=== PATIENT | female | born 1945 | race Caucasian/White ===

== ENCOUNTER 2022-05-16 18:22 | Emergency (ER) | payer MEDICARE, BC ==
[~2022-05-16] VITALS: Ht 170.2 cm; Wt 88.6 kg
[2022-05-16] MEDS ORDERED: niCARDipine-NS 40mg/200ml IVPB 200 ML IV SCH (19:15)
[2022-05-16 19:48] LABS: BASOPHILS % (AUTO) 0.6 % (0-1); EOSINOPHILS # (AUTO) 0.1 X10'3 (0-0.9); EOSINOPHILS % (AUTO) 2.3 % (0-6); HEMATOCRIT 40.1 % (35.0-45.0); LYMPHOCYTES # (AUTO) 1.9 X10'3 (1.1-4.8); LYMPHOCYTES % (AUTO) 30.5 % (21-51); MEAN CORPUSCULAR HEMOGLOBIN 32.8 PG (27.0-31.0); MEAN CORPUSCULAR HGB CONC 34.9 g/dL (33.0-36.5); MEAN CORPUSCULAR VOLUME 93.9 FL (78-98); MEAN PLATELET VOLUME 8.2 FL (7.4-10.4); MONOCYTES # (AUTO) 0.7 X10'3 (0-0.9); MONOCYTES % (AUTO) 11.5 % (2-12); NEUTROPHILS # (AUTO) 3.4 X10'3 (1.8-7.7); NEUTROPHILS % (AUTO) 55.1 % (42-75); PLATELET COUNT 199 X10'3 (140-440); RED BLOOD COUNT 4.27 X10'6 (4.20-5.60); RED CELL DISTRIBUTION WIDTH 12.4 % (11.5-14.5); WHITE BLOOD COUNT 6.2 X10'3 (4.5-11.0)
[2022-05-16 20:05] LABS: ALANINE AMINOTRANSFERASE 41 U/L (12-78); ALBUMIN/GLOBULIN RATIO 1.2 (1.1-1.5); ALKALINE PHOSPHATASE 42 IU/L (46-116); ANION GAP 10 (8-16); ASPARTATE AMINO TRANSFERASE 26 U/L (10-37); BILIRUBIN,TOTAL 0.3 MG/DL (0.1-1.0); BLOOD UREA NITROGEN 20 MG/DL (7-18); BUN/CREATININE RATIO 21.7 (6.6-38.0); CHLORIDE 106 MMOL/L (99-107); CREATININE 0.92 MG/DL (0.40-0.90); GLUCOSE 105 MG/DL (70-104); POTASSIUM 3.9 MMOL/L (3.5-5.1); SODIUM 141 MMOL/L (135-145); TOTAL CARBON DIOXIDE 25.3 MMOL/L (24-32); TOTAL PROTEIN 7.3 G/DL (6.4-8.2); eGFR 59 ML/MIN
[2022-05-16 20:37] VITALS: BP 151/96
[2022-05-16 21:37] LABS: CLARITY,URINE CLEAR (Clear); GLUCOSE, URINE NEGATIVE (Neg); KETONES,URINE NEGATIVE (Neg); LEUKOCYTE ESTERASE ,URINE MODERATE (Neg); NITRITES, URINE NEGATIVE (Neg); OCCULT BLOOD,URINE TRACE-INTACT (Neg); PROTEIN,URINE NEGATIVE (Neg); UROBILINOGEN,URINE 0.2 E.U/dL (0.2-1.0)
[2022-05-16 21:42] LABS: URINE AMPHETAMINE SCREEN NEGATIVE (Neg); URINE BARBITUATE SCREEN NEGATIVE (Neg); URINE BENZODIAZEPINES SCREEN NEGATIVE (Neg); URINE CANNABINOID SCREEN NEGATIVE (Neg); URINE COCAINE SCREEN NEGATIVE (Neg); URINE METHADONE SCREEN NEGATIVE (Neg); URINE OPIATE SCREEN NEGATIVE (Neg); URINE PHENCYCLIDINE SCREEN NEGATIVE (Neg)
[2022-05-16 21:58] LABS: UA COLLECTION TYPE CLN CATCH MIDSTREAM
[2022-05-16 21:59] LABS: BACTERIA,URINE 1+ /HPF (Neg); RBC,URINE 0-2 /HPF (0-2); SQUAMOUS EPITHELIAL CELL,UR FEW /LPF (FEW)
[2022-05-16 22:01] LABS: COLOR,URINE STRAW (Yellow)
== END 2022-05-16 22:00 | disposition home or self-care (01) ==
LOC: ER 18:24
DX: I10 Essential (primary) hypertension (principal); H53.9 Unspecified visual disturbance
CPT/HCPCS: 36415; 70450; 71045; 80053; 80305; 81001; 85025; 87088; 93005; 96365; 99285; J3490

== ENCOUNTER 2024-12-06 00:34 | Emergency (ER) | payer BC, MEDICARE ==
[~2024-12-06] VITALS: Ht 165.1 cm; Wt 88.6 kg
[2024-12-06] MEDS ORDERED: tizanidine 4mg tablet PO ONE (02:30)
[2024-12-06] MEDS: tizanidine 4mg tablet PO ONE (03:07)
[2024-12-06] MEDS: predniSONE 20 mg tablet PO ONE (03:07)
[2024-12-06] MEDS ORDERED: PRED20TA PO (03:35)
[2024-12-06] MEDS ORDERED: METH-797 PO (03:36)
[2024-12-06 03:49] VITALS: BP 164/78; PULSE 84; RESP 16; TEMP 98.5; O2SAT 98
== END 2024-12-06 03:52 | disposition home or self-care (01) ==
LOC: ER 00:35
DX: M54.50 Low back pain, unspecified (principal); G89.29 Other chronic pain; Z88.5 Allergy status to narcotic agent; Z91.041 Radiographic dye allergy status; Z86.73 Personal history of transient ischemic attack (TIA), and cerebral infarction without residual deficits; Z79.899 Other long term (current) drug therapy
CPT/HCPCS: 99283; J7512

== ENCOUNTER 2024-12-27 12:29 | Outpatient (CLI) | payer MEDICARE, BC ==
[~2024-12-27 12:29] MED LIST: METH-797 PO
== END 2024-12-27 23:59 | disposition home or self-care (01) ==
LOC: MRI 12:29
PROVIDERS: ATTEND Physician Assistant Surgical
DX: M51.17 Intervertebral disc disorders with radiculopathy, lumbosacral region (principal); M47.26 Other spondylosis with radiculopathy, lumbar region; M70.62 Trochanteric bursitis, left hip; M48.061 Spinal stenosis, lumbar region without neurogenic claudication
CPT/HCPCS: 72148

== ENCOUNTER 2025-04-21 15:57 | Outpatient (CLI) | payer MEDICARE, BC ==
--- NOTE | 2025-04-21 16:03 | RADIOLOGY REPORT ---
PROCEDURE: MR MRI LUMBAR SPINE INDICATION: LOW BACK PAIN, UNSPECIFIED Exam Date: 04/21/2025 02:47 PM COMPARISON: MR MRI LUMBAR SPINE on DOS: 12/27/24 TECHNIQUE: MRI lumbar spine without intravenous contrast. FINDINGS: The lumbar alignment is intact. There are degenerative endplate changes including modic endplate ch anges with anterior and lateral osteophytes throughout the lumbar spine. The visualized distal spinal cord and conus medullaris are within normal limits. The conus medullaris appears to terminate withi n normal limits. The visualized retroperitoneal and paraspinal soft tissues are unremarkable. The following axial levels are detailed below: T12-L1: Unremarkable. L1-L2: Unremarkable. L2-L3: Large central and right paracentral disc protrusion resulting in severe central canal stenosi s associated with mild bilateral neural foraminal stenosis. L3-L4: There is a moderate circumferential disc bulge complicated by facet arthropathy associated w ith mild to moderate bilateral neuroforaminal stenosis. No significant central canal stenosis. L4-L5: There is a moderate circumferential disc bulge complicated by facet arthropathy associated w ith mild to moderate bilateral neuroforaminal stenosis. No significant central canal stenosis. L5-S1: Unremarkable. IMPRESSION: 1. Large central and right paracentral disc protrusion at L2-3 resulting in severe central canal sten osis with compression on the equina similar to prior exam. Neurosurgical evaluation is recommended. 2. Multilevel degenerative disease. Neural foraminal stenosis as above. HS:Y
--- NOTE | 2025-04-21 21:45 | RADIOLOGY REPORT ---
CLINICAL INDICATION: LUMBAR HERNIATED DISC TECHNIQUE: 5 radiographic views of bilateral hips were obtained. Comparison: None FINDINGS/IMPRESSION: There is no evidence of acute fracture or dislocation. Wwzj-ho-ouyjiatz degenerative changes of bilateral hips . Sclerosis of bilateral pubic symphysis. Mi fe-gz-cpuhoqgd degenerative changes of bilateral SI joints bilateral lower lumbar spine. The alignment is anatomical. Phleboliths are noted within the pelvis. Moderate amount of fecal material within the visualized col on.
--- NOTE | 2025-04-21 21:49 | RADIOLOGY REPORT ---
CLINICAL INDICATION: LUMBAR HERNIATED DISC TECHNIQUE: 5 radiographic views of the lumbar spine were obtained. Comparison: None FINDINGS/IMPRESSION: 5 jpo-zxm-qxwtrrm lumbar-type vertebrae. Straightening of the lumbar lordosis with mild dextroconvex curvature of the lumbar spine. The vertebral body heights are maintained. No evidence of acute traum atic fractures. 3 mm retrolisthesis of L5 on S1. Severe degenerative changes at L5-S1. Otherwise, multilevel mild degenerative changes of the lumbar spine. Mild atherosclerotic calcification of the aorta and bilateral iliacs. Small to moderate amount of fec al material within the visualized colon.
== END 2025-04-21 23:59 | disposition home or self-care (01) ==
LOC: MRI02 15:57
PROVIDERS: ATTEND Neurological Surgery
DX: M51.16 Intervertebral disc disorders with radiculopathy, lumbar region (principal); I70.0 Atherosclerosis of aorta; M54.9 Dorsalgia, unspecified; M51.26 Other intervertebral disc displacement, lumbar region; I70.8 Atherosclerosis of other arteries; M47.817 Spondylosis without myelopathy or radiculopathy, lumbosacral region; I87.8 Other specified disorders of veins; M16.0 Bilateral primary osteoarthritis of hip; M47.26 Other spondylosis with radiculopathy, lumbar region
CPT/HCPCS: 72110; 72148; 73521

== ENCOUNTER 2025-06-26 12:08 | Emergency (ER) | payer MEDICARE, BC ==
[~2025-06-26] VITALS: Ht 170.2 cm; Wt 94.8 kg
[2025-06-26 12:15] VITALS: BP 163/77; PULSE 95; RESP 17; TEMP 97.8; O2SAT 92
--- NOTE | 2025-06-26 12:37 | Physician Documentation ---
History of Present Illness ~ Chief Complaint: Hypertension Stated Complaint: HIGH BP Time Seen by MD: 12:31 HPI This is an 79-year-old female who presents with concern for multiple high blood pressure readings at home, patient reports that she recently had back surgery in is experiencing significant back pain though does have medications that adequately control her pain, patient reports that she has a blood pressure taken in the morning when home health nurses visit however reports that she does not take her pain medication until later in the day. Patient reports blood pressure over 200 systolic at home however in triage patient blood pressure is in the 150s systolic. Patient reports taking pain medication prior to arrival. Patient reports no other acute symptoms or concerns including no chest pain, vision changes, headaches, dizziness, or shortness of breath. Patient reports follow up appointment with primary care on Monday for medication adjustment. Medication Reconciliation Allergies: Coded Allergies: Opioids - Morphine Analogues (Verified Allergy, Intermediate, NAUSEA, 05/16/22) iodine (Verified Allergy, Intermediate, 05/16/22) Scheduled PRN Methocarbamol (Methocarbamol), 1 TAB PO Q8H PRN for pain Past Medical History Past Medical History: CVA/TIA/Stroke Past Surgical History: noncontributory Drug Use: none Lives In: Home Review of Systems ROS As stated above in the HPI, otherwise all systems are reviewed and negative. Physical Exam Vital Signs: Temperature: 97.8, Source: Oral, Heart Rate: 95, Respiratory Rate: 17, BP: 163/77, Pulse Oximetry: 92, Weight: 94.800 Physical Exam VITALS: Reviewed and as above. GENERAL: Alert, nontoxic appearing, no apparent distress. HEENT: PERRLA RESPIRATORY: No increased work of breathing, no respiratory distress, speaking in full clear sentences, clear lung sounds in all velazquez CV: Regular rate and rhythm no murmur Progress Results/Orders Results/Orders Vital Signs 06/26/25 12:15 Temp 97.8 Pulse 95 Resp 17 B/P (MAP) 163/77 Pulse Ox 92 Medical Decision Making Findings This 79-year-old female presented with concern for multiple high blood pressure readings at home, of significance patient reported significant pain due to recent back surgery and taking blood pressure readings prior to medication for back pain, blood pressure readings were conducted by in home health worker and that has felt that patient's significant pain contributed to high blood pressure readings at home as patient's blood pressure readings in the emergency department were elevated though not to an extent to institute a hypertensive emergency. Additionally reassuring patient reported no other symptoms to suggest hypertensive emergency including vision changes, hearing changes, headache, chest pain, or shortness of breath. Patient is well-appearing and physical exam benign. I discussed this with patient and offered lab work and further evaluation to assess for end-organ damage however patient has declined and with shared decision-making will discharge home with careful watch and wait long with serial blood pressure measurements by home health workers after patient has medicated herself for pain and prompt follow up as scheduled in four days with patient's primary care provider. Patient provided home care instructions, follow up instructions, and return to care precautions which she verbalized understanding of. Differential Dx:Considerations: Include CHF, Include HTN, essential, Include HTN, accelerated, Include HTN, malignant, Include HTN, encephalopathy, Include medical noncompliance, Include medication withdrawal, Include pulmonary edema, Include renal failure Departure Time of Disposition: 12:35 Disposition: HOME / SELF CARE / HOMELESS Impression: Primary Impression: Hypertension Qualified Codes: I10 - Essential (primary) hypertension Additional Impression: Acute back pain Qualified Codes: M54.9 - Dorsalgia, unspecified Condition: Improved Discharge Instructions: Hypertension, Adult, Rfei-ns-Qqot Additional Instructions: As we discussed please take your blood pressure after taking your pain medication as I believe your acute pain is artificially increasing your blood pressure, follow up as scheduled with your primary care provider for blood pressure medication adjustment. Please follow up with your primary care provider in the next few days. Please return to the emergency department for any new or worsening concerning symptoms. Referrals: NO PRIMARY CARE PROVIDER (PCP) Education Educated: Patient Educated regarding: diagnosis, treatment, prognosis, need for follow up Signature Scribe Signature: No scribe Attestation: The note accurately reflects work and decisions made by me.TREMAYNE Bravo 06/27/25 11:09 FANY SWENSON Jun 26, 2025 12:37
== END 2025-06-26 12:45 | disposition home or self-care (01) ==
LOC: ER 12:09
DX: I10 Essential (primary) hypertension (principal); M54.9 Dorsalgia, unspecified; Z86.73 Personal history of transient ischemic attack (TIA), and cerebral infarction without residual deficits; Z88.5 Allergy status to narcotic agent; Z88.8 Allergy status to other drugs, medicaments and biological substances
CPT/HCPCS: 99282

== ENCOUNTER 2025-09-19 13:09 | Outpatient (CLI) | payer MEDICARE, BC ==
--- NOTE | 2025-09-19 15:24 | RADIOLOGY REPORT ---
CLINICAL INFORMATION: UNSP INJ MUSC/TEND THE ROTATOR CUFF OF R SHOULDER. TECHNIQUE: Multisequence multiplanar MRI images of the right shoulder were obtained without contrast. COMPARISON: None FINDINGS: Acromioclavicular joint: There is xdhu-dm-rxrvcmie acromioclavicular hypertrophy and wjmx-vx-rilgupod edema. There is Type 2 acromion. Small amount of fluid in the subacromial / subdeltoid bursa. Rotator cuff tendons: Partial-thickness to near full-thickness articular surface tear involving the mid to posterior fibers of the supraspinatus tendon and possibly extending to the anterior fibers of the infraspinatus tendon just proximal to the insertion, measuring up to 2.1 cm in AP dimension and 0.8 cm in proximal to distal dimension. Possible small full-thickness communication associated with the tear. Subscapularis and teres minor tendons are intact. Biceps tendon: No significant tendinosis. No evidence of attrition or tear. Labrum: Fraying of the superior labrum. Bones: No fracture or focal marrow contusion. Muscles: Normal muscle bulk. No atrophy. Other: Motion limited study. IMPRESSION: 1. Partial-thickness to near full-thickness articular surface tear involving the mid to posterior fibers of the supraspinatus tendon and possibly extending to the anterior fibers of the infraspinatus tendon just proximal to the insertion. 2. Synn-dz-ghrkqdqe acromioclavicular hypertrophy with mild subacromial/subdeltoid bursitis. 3. Fraying of the superior labrum. 4. Motion limited study.
--- NOTE | 2025-09-19 18:42 | RADIOLOGY REPORT ---
EXAM: MR MRI C SPINE HISTORY: RADICULOPATHY,CERVICAL REGION COMPARISON: None TECHNIQUE: MRI was performed utilizing multiple appropriate imaging planes and pulse sequences. FINDINGS: There straightening of the normal cervical lordosis. There is near degenerative fusion of the disc space at C5-6 with severe disc height loss. There is minimal retrolisthesis of C6 on C7. There is no fracture or subluxation. There is no significant marrow edema. Normal morphology and signal of the cervical cord. INTERVERTEBRAL DISCS: C2-C3: Mild disc height loss with desiccation. No disc herniation, central canal stenosis, or neuroforaminal stenosis. C3-C4: Mild to disc height loss with desiccation. Broad-based posterior disc osteophyte complex resulting in moderate left and mild right neural foraminal narrowing. No significant central canal stenosis. C4-C5: Mild disc desiccation height loss. No disc herniation, central canal stenosis, or neuroforaminal stenosis. Minimal facet arthrosis. C5-C6: Severe disc height loss with near degenerative fusion . Small broad-based disc osteophyte complex resulting in minimal right neural foraminal narrowing. No spinal canal narrowing. C6-C7: Mild broad-based posterior disc osteophyte complex resulting in asymmetric mild vbnu-tnfjsgm-bnpw-right neural foraminal narrowing. No significant spinal canal stenosis.r C7-T1: No disc herniation, central canal stenosis, or neuroforaminal stenosis. 9 mm left perineural cyst within the left neural foramen. IMPRESSION: Posterior disc osteophyte complex at C3-C4 or results in moderate left and mild right neural foraminal narrowing. Severe disc echogenic degenerative change at C5-C6. The 9 mm left perineural cyst at the C7-T1 level
--- NOTE | 2025-09-19 18:49 | RADIOLOGY REPORT ---
CLINICAL HISTORY: SPONDYLOSIS W/O MYELOPATHY OR RADICULOPATHY, LUMBAR REGION TECHNIQUE: MRI of the lumbar spine was performed with without contrast. WID: COMPARISON: MR MRI LUMBAR SPINE on DOS: 04/21/25, MR MRI LUMBAR SPINE on DOS: 12/27/24 FINDINGS: This report assumes 5 lumbar type vertebral bodies . Lumbar alignment is maintained. There is no fracture or subluxation. No significant endplate marrow abnormality. The conus medullaris terminates at T12-L1. The caudal spinal cord signal and morphology is within normal limits. At T12-L1, there is no significant disc height loss. The neural foramen are widely patent. At L1-L2, No neuroformaninal or spinal canal narrowing. There is mild facet arthrosis with preserved disc height. At L2-L3, there is a 1.5 x 1.3 cm central disc extrusion which results in mild spinal canal narrowing on a backdrop of broad-based posterior disc bulge. There is mild facet arthrosis with fluid within the facet joints. Sequelae of prior posterior decompression at this level. There is disc desiccation with mild disc height loss. There is moderate left and mild right neural foraminal narrowing. There is moderate spinal canal stenosis. At L3-L4, a asymmetric left bilobed disc protrusion with ligamentum flavum infolding and moderate facet arthrosis which results in mild spinal canal narrowing. There is mild bilateral neural foraminal narrowing. At L4-L5, there is disc desiccation with moderate height loss. There is a broad- based posterior disc protrusion with ligamentum flavum infolding and facet arthrosis which results in mild bilateral neural foraminal narrowing mild spinal canal stenosis. Possible contact of the traversing bilateral L5 nerve roots At L5-S1, there is a broad-based posterior disc bulge with superimposed central posterior disc extrusion with contact of the traversing left S1 nerve root. There is mild spinal canal stenosis. No significant neural foraminal narrowing. There is severe disc height loss with desiccation. IMPRESSION: Multilevel spondylotic and discogenic degenerative changes as described above, notably with a large central disc extrusion with facet arthrosis at L2-L3 resulting in moderate spinal canal stenosis. Sequelae of prior posterior decompression at this level. Central disc extrusion at L5-S1 resulting in contact of the traversing left S1 nerve root with associated severe discogenic degenerative change.
== END 2025-09-19 23:59 | disposition home or self-care (01) ==
LOC: MRI02 13:09
PROVIDERS: ATTEND Neurological Surgery
DX: S43.432A Superior glenoid labrum lesion of left shoulder, initial encounter (principal); M75.121 Complete rotator cuff tear or rupture of right shoulder, not specified as traumatic; M50.123 Cervical disc disorder at C6-C7 level with radiculopathy; M47.816 Spondylosis without myelopathy or radiculopathy, lumbar region; M51.17 Intervertebral disc disorders with radiculopathy, lumbosacral region; M48.07 Spinal stenosis, lumbosacral region; M25.78 Osteophyte, vertebrae; S46.001A Unspecified injury of muscle(s) and tendon(s) of the rotator cuff of right shoulder, initial encounter; M75.52 Bursitis of left shoulder; X58.XXXA Exposure to other specified factors, initial encounter; Y93.89 Activity, other specified; Y92.89 Other specified places as the place of occurrence of the external cause; Y99.8 Other external cause status; M48.02 Spinal stenosis, cervical region
CPT/HCPCS: 72141; 72148; 73221